=== PATIENT | female | born 1970 | race Caucasian/White ===

== ENCOUNTER → 2023-12-11 13:22 | Outpatient (REF) | payer BC, SELFPAY | LOC: HWWDC 13:22 | PROVIDERS: ATTENDING PHYSICIAN Student in an Organized Health Care Education/Training Program; FAMILY PHYSICIAN Family Medicine | DX: Z12.31 Encounter for screening mammogram for malignant neoplasm of breast (principal) | CPT/HCPCS: 77063; 77067 ==

== ENCOUNTER → 2024-05-26 09:03 | Outpatient (REF) | payer BC, SELFPAY ==
[2024-05-26 10:28] LABS: % Basophils 1.4 % (0-2); % Eosinophils 9.1 % (0-6); % Immature Granulocytes 0.3 % (0-0.5); % Lymphocytes 42.3 % (20.5-51.1); % Monocytes 9.2 % (1.7-9.3); % Neutrophils 37.7 % (42.2-75.2); Absolute Basophils 0.1 10^3/uL (0-0.2); Absolute Eosinophils 0.7 10^3/uL (0-0.7); Absolute Lymphocytes 3.1 10^3/uL (1.2-3.4); Absolute Monocytes 0.7 10^3/uL (0.1-0.6); Absolute Neutrophils 2.8 10^3/uL (1.4-6.5); Hematocrit 42.1 % (37.0-47.0); Hemoglobin 14.1 g/dL (12.0-16.0); Mean Corp Hgb Conc. 33.5 g/dL (33.0-37.0); Mean Corpuscular Hgb 33.1 pg (27.0-31.0); Mean Corpuscular Volume 98.8 fL (81.0-99.0); Mean Platelet Volume 11.1 fL (7.4-10.4); Nucleated Red Blood Cells % 0 %; Platelet Count 279 10^3/uL (130-400); Red Blood Cell Count 4.26 10^6/uL (4.20-5.40); Red Cell Dist. Width 12.4 % (11.5-14.5); White Blood Cell Count 7.4 10^3/uL (4.8-10.8)
[2024-05-26 10:52] LABS: Rheumatoid Agglutinin Less Than 10 IU (<10 IU)
[2024-05-26 11:00] LABS: ALT (SGPT) 70 U/L (0-35); AST (SGOT) 65 U/L (14-36); Albumin 4.9 g/dl (3.5-5.0); Alkaline Phosphatase 55 U/L (38-126); Blood Urea Nitrogen 13 mg/dl (7-17); Calcium 9.4 mg/dl (8.4-10.2); Carbon Dioxide 30 mmol/L (22-30); Chloride 103 mmol/L (98-107); Glucose 69 mg/dl (70-99); Iron 152 ug/dl (37-170); Potassium 4.4 mmol/L (3.5-5.1); Sodium 144 mmol/L (135-145); Total Bilirubin 0.4 mg/dl (0.2-1.3); Total Cholesterol 247 mg/dl (50-199); Total Protein 7.6 g/dl (6.3-8.2); Triglyceride 90 mg/dl (10-149); Very Low Density Lipoprotein 18 mg/dl (0-30); eGFR > 60.00
[2024-05-26 11:10] LABS: Percent Saturation 51 % (20-50); Total Iron Binding Capacity 293 ug/dl (265-497)
[2024-05-26 11:12] LABS: HDL Cholesterol 131 mg/dl; LDL Cholesterol, Calculated 98 mg/dl
[2024-05-26 12:07] LABS: Folate 15.1 ng/ml (2.76-20); Vitamin B12 413 pg/ml (239-931)
== END ==
LOC: REG 09:03
PROVIDERS: ATTENDING PHYSICIAN Nurse Practitioner Family; FAMILY PHYSICIAN Family Medicine
DX: Z13.228 Encounter for screening for other metabolic disorders (principal); Z13.220 Encounter for screening for lipoid disorders; D64.9 Anemia, unspecified; R53.83 Other fatigue; M25.50 Pain in unspecified joint
CPT/HCPCS: 36415; 80053; 80061; 82607; 82728; 82746; 83540; 83550; 85025; 86430; 86618

== ENCOUNTER → 2024-12-31 12:15 | Outpatient (REF) | payer BC, SELFPAY | LOC: HWRAD 12:15 | PROVIDERS: ATTENDING PHYSICIAN Physician Assistant | DX: M25.551 Pain in right hip (principal); M25.552 Pain in left hip | CPT/HCPCS: 73523 ==

== ENCOUNTER → 2025-03-11 11:33 | Outpatient (REF) | payer BC, SELFPAY | LOC: HWRAD 11:33 | PROVIDERS: ATTENDING PHYSICIAN Pediatrics | DX: S62.502A Fracture of unspecified phalanx of left thumb, initial encounter for closed fracture (principal) | CPT/HCPCS: 73140 ==